=== PATIENT | female | born 1985 | race Caucasian/White ===

== ENCOUNTER 2016-09-02 05:24 | Inpatient (IN) | payer OTHER ==
[2016-09-02] VITALS (7 sets, daily range): BP systolic 101–122; BP diastolic 56–67
[~2016-09-02] VITALS: Ht 165.1 cm; Wt 97.5 kg
[~2016-09-02 05:24] MED LIST: ACET50TA PO; ANUS2.5C2 TOP; DOCU10ELUD PO; IBUP600T26 PO; MOM30SS; PRENTAB45 PO; STUATAB PO
[2016-09-02 06:04] LABS: MEAN CORPUSCULAR HEMOGLOBIN 32.6 pg (27.0-33.0); MEAN CORPUSCULAR HGB CONC 34.9 g/dl (32.0-36.5); MEAN CORPUSCULAR VOLUME 93.4 fl (80.0-96.0); RED CELL DISTRIBUTION WIDTH 13.1 % (11.5-14.5); WHITE BLOOD COUNT 7.8 K/mm3 (4.0-10.0)
[2016-09-02] MEDS ORDERED: BICITRA 30ML SOLN UDC As Ordered ONE (06:12)
[2016-09-02] MEDS ORDERED: LR 1,000 ML IV SCH (06:15)
[2016-09-02] MEDS ORDERED: BICITRA 30ML SOLN UDC PO SCH (07:01)
[2016-09-02] MEDS ORDERED: BICITRA 30ML SOLN UDC PO ONE (10:00)
[2016-09-02] MEDS ORDERED: METOCLOPRAMIDE INJ 10MG/2ML VIAL (J2765) IV PRN (10:44)
[2016-09-02] MEDS ORDERED: ONDANSETRON 4MG/2ML VIAL (J2405) IV PRN ×3 (10:44→13:00)
[2016-09-02] MEDS ORDERED: NALBUPHINE HCL 10 MG/ML AMP (J2300) IV PRN (10:44)
[2016-09-02] MEDS ORDERED: NALOXONE INJ 0.4 MG/1 ML VIAL (J2310) IV PRN ×2 (10:44)
[2016-09-02] MEDS ORDERED: MORPHINE PRES-FREE INJ 10 MG/10 ML VIAL (J2274) As Ordered ONE (10:49)
[2016-09-02] MEDS ORDERED: PHENYLephrine HCL 500 MCG/5 ML (100MCG/ML) SYRINGE (J2370) As Ordered ONE ×2 (10:49→10:57)
[2016-09-02] MEDS ORDERED: OXYTOCIN INJ 10 UNITS/ML VIAL (J2590) As Ordered ONE (10:59)
[2016-09-02] MEDS ORDERED: ONDANSETRON 4MG/2ML VIAL (J2405) As Ordered ONE (10:59)
[2016-09-02] MEDS ORDERED: KETOROLAC 60 MG/2 ML VIAL (J1885) As Ordered ONE (10:59)
[2016-09-02] MEDS ORDERED: MEPERIDINE 50 MG/ML 1ML VIAL (J2175) As Ordered ONE (11:21)
[2016-09-02] MEDS ORDERED: fentaNYL 100 MCG/2 ML INJECTION (J3010) IV PRN (12:30)
[2016-09-02] MEDS ORDERED: MEASLES,MUMPS,RUBELLA VACCINE INJ (MMR-II) (90707) SC SCH (13:00)
[2016-09-02] MEDS ORDERED: RHOGAM 300 MCG (1500 IU) INJ (J2790) IM SCH (13:00)
[2016-09-02] MEDS ORDERED: PROMETHAZINE 25 MG TAB PO PRN (13:00)
[2016-09-02] MEDS ORDERED: PERCOCET 5MG/325MG TAB PO PRN (13:00)
[2016-09-02] MEDS: PERCOCET 5MG/325MG TAB PO PRN ×2 (15:42→20:18)
[2016-09-02] MEDS: LR 1,000 ML IV SCH ×2 (16:00→20:52)
[2016-09-02] MEDS: KETOROLAC 30 MG/ML VIAL (J1885) IV SCH ×2 (17:04→23:00)
[2016-09-02] MEDS: DOCUSATE SODIUM 100 MG CAP PO SCH (20:18)
[2016-09-03] MEDS: PERCOCET 5MG/325MG TAB PO PRN ×5 (01:59→23:36)
[2016-09-03 02:00] VITALS: BP 110/64
[2016-09-03] MEDS: LR 1,000 ML IV SCH ×2 (04:52→20:52)
[2016-09-03] MEDS: KETOROLAC 30 MG/ML VIAL (J1885) IV SCH ×2 (05:18→11:13)
[2016-09-03 06:14] VITALS: BP 115/59
[2016-09-03 07:11] LABS: MEAN CORPUSCULAR HEMOGLOBIN 32.1 pg (27.0-33.0); MEAN CORPUSCULAR HGB CONC 34.1 g/dl (32.0-36.5); MEAN CORPUSCULAR VOLUME 94.2 fl (80.0-96.0); RED CELL DISTRIBUTION WIDTH 13.2 % (11.5-14.5); WHITE BLOOD COUNT 9.2 K/mm3 (4.0-10.0)
[2016-09-03] MEDS: DOCUSATE SODIUM 100 MG CAP PO SCH ×2 (09:27→20:04)
[2016-09-03] MEDS: PRENATAL VITAMIN TAB PO SCH (09:27)
[2016-09-03 10:00] VITALS: BP 125/60
[2016-09-03 14:10] VITALS: BP 115/65
[2016-09-03 18:41] VITALS: BP 129/76
[2016-09-03] MEDS: IBUPROFEN 800 MG TAB PO SCH (18:54)
[2016-09-03 22:05] VITALS: BP 133/59
[2016-09-04] MEDS: IBUPROFEN 800 MG TAB PO SCH ×3 (02:46→18:54)
[2016-09-04] MEDS: LR 1,000 ML IV SCH (04:52)
[2016-09-04 05:57] VITALS: BP 119/79
[2016-09-04] MEDS: PERCOCET 5MG/325MG TAB PO PRN ×4 (06:15→20:56)
[2016-09-04] MEDS ORDERED: OXYC1TAB23 PO (08:26)
[2016-09-04] MEDS ORDERED: IBUP600T26 PO (08:27)
[2016-09-04] MEDS ORDERED: COLA100C PO (09:27)
[2016-09-04] MEDS ORDERED: ZOFR4TAB3 PO (09:27)
[2016-09-04] MEDS: PRENATAL VITAMIN TAB PO SCH (09:54)
[2016-09-04] MEDS: DOCUSATE SODIUM 100 MG CAP PO SCH ×2 (09:54→20:56)
[2016-09-04 18:19] VITALS: BP 131/80
[2016-09-05] MEDS: PERCOCET 5MG/325MG TAB PO PRN ×3 (01:36→09:52)
[2016-09-05] MEDS: IBUPROFEN 800 MG TAB PO SCH (03:00)
[2016-09-05 05:51] VITALS: BP 127/65
[2016-09-05] MEDS ORDERED: KEFL500C7 PO ×2 (08:08→10:04)
[2016-09-05] MEDS: DOCUSATE SODIUM 100 MG CAP PO SCH (09:50)
[2016-09-05] MEDS: PRENATAL VITAMIN TAB PO SCH (09:50)
[2016-09-05] MEDS ORDERED: COLA100C PO (09:59)
[2016-09-05] MEDS ORDERED: IBUP-1114 PO (10:00)
[2016-09-05] MEDS ORDERED: PRENTAB9 PO (10:01)
[2016-09-05] MEDS ORDERED: ZOFR20TA PO (10:01)
[2016-09-05] MEDS ORDERED: OXYC1TAB23 PO ×2 (10:02→10:03)
--- NOTE | 2016-09-05 10:16 | DSES ---
DATE OF ADMISSION: 09/02/2016 DATE OF DISCHARGE: 09/05/2016 REASON FOR ADMISSION: Scheduled primary low transverse section at 39 weeks gestation. ADMITTING DIAGNOSES: 1. Term gestation at 39 weeks. 2. History of shoulder dystocia with sequelae (patient declined another trial of labor). DISCHARGE DIAGNOSIS: Status post primary low transverse section. DISCHARGE SUMMARY: The patient is a 31-year-old, (G) 5, now para (P) 3-0-2-3. She was admitted at 39 weeks and 1 day of gestation for a scheduled primary low transverse section. Her past obstetrical (OB) history is notable for shoulder dystocia with sequelae/clavicular fracture and prolonged recovery with her last . She declined trial of labor during this given risk of recurrence of shoulder dystoci. The patient underwent an uncomplicated primary low transverse section on 09/02/2016. Estimated blood loss was 600 mL. The delivery was productive of a baby girl weighing 7 pounds 8 ounces (3258 grams) with score of 8 and 9. Incidentally, three paratubal cysts were noted during the section and these were excised without any difficulty. Her postoperative hospital course was essentially uncomplicated. However, on postoperative day #3, it was noted that she had a small area of cellulitis developing underneath the umbilicus and above her incision. Her incision was clean, dry and intact but the skin above it was red, nonindurated and warm to touch. The patient did not complain of any exquisite pain over this area, and her pain was well controlled with Percocet and Motrin. She was ambulating without any difficulty. She was tolerating a regular diet. Her lochia was decreasing minimal. She was voiding spontaneously. The patient is breast-feeding and that is going well. She denied any headaches, blurred vision, shortness of breath, chest pain. Her vitals on the date of discharge, she was normotensive, normal heart rate, afebrile with adequate urine output. Heart regular rate and rhythm. No murmurs, gallops, rubs. Lungs clear to auscultation bilaterally. No wheeze, crackles, rales, or rhonchi. Abdomen soft, nontender, nondistended. Uterine fundus is 2 cm below the umbilicus. Incision was clean, dry and intact without any immediate surrounding erythema or induration. There was small amount of ecchymosis on the right side of the skin incision and directly above the central portion of the incision. There was also some mild skin erythema below the umbilicus and both the incision that was marked on postoperative day #2 and it was nonexpanding. There was no underlying induration. It was mildly warm to touch and it was not exquisitely tender. Extremities revealed no significant edema, nontender. Negative Homans bilaterally. Preoperative hemoglobin and hematocrit 11.9 and 34.3. Postoperative hemoglobin and hematocrit 10.4 and 30.4. ASSESSMEN AND PLAN: Postoperative day #3, meeting all discharge criteria. Pain is well controlled. Hemodynamically stable. Afebrile. Possible evolving cellulitis above the incision. She was given routine infectious, fever, pain and bleeding precautions. Incision wound care precautions were also reviewed. Postoperative medications include Percocet, Motrin, Colace and Zofran. We also added Keflex 500 mg twice a day for the next 7 days to treat the cellulitis.
== END 2016-09-05 11:55 | disposition home or self-care (01) | DRG 766 ==
LOC: M LDI 05:24 → M OBS 14:29
PROVIDERS: ADMIT Obstetrics & Gynecology; ATTEND Obstetrics & Gynecology
PROC: 0UB70ZZ Excision of Bilateral Fallopian Tubes, Open Approach (ICD-10-PCS; 2016-09-02)
PROC: 10D00Z1 Extraction of Products of Conception, Low, Open Approach (ICD-10-PCS; principal; 2016-09-02 07:30)
DX: O99.344 Other mental disorders complicating childbirth (principal); O22.03 Varicose veins of lower extremity in pregnancy, third trimester; F32.9 Major depressive disorder, single episode, unspecified; Z3A.39 39 weeks gestation of pregnancy; O26.893 Other specified pregnancy related conditions, third trimester; N83.8 Other noninflammatory disorders of ovary, fallopian tube and broad ligament; Z37.0 Single live birth

== ENCOUNTER → 2016-11-25 | Outpatient (CLI) | payer OTHER ==
[~2016-11-25] MED LIST changes: +COLA100C3 PO; +IBUP-1114 PO; +KEFL500C7 PO; +OXYC1TAB23 PO; +PRENTAB9 PO; +ZOFR20TA PO; +ZOFR4TAB3 PO
[2016-11-25 17:07] LABS: FREE T4 0.8 NG/DL (0.76-1.46)
== END ==
LOC: M WUC 14:47
PROVIDERS: ATTEND Obstetrics & Gynecology
DX: O90.6 Postpartum mood disturbance (principal)

== ENCOUNTER → 2017-02-09 | Outpatient (CLI) | payer OTHER ==
[~2017-02-09] MED LIST changes: -COLA100C3 PO; +COLA100C5 PO; +IBUP-1022 PO; +KEFL500C17 PO; -KEFL500C7 PO
--- NOTE | 2017-02-09 09:19 | REP ---
Clinical: Lower back pain. Technique: AP, lateral, bilateral oblique and coned-down views of the lumbosacral spine. Findings: Minimal endplate sclerosis at the L4-5 and L5-S1 levels with subtle disc space narrowing cannot be excluded. The remainder examination is normal for age. Alignment and lordosis maintained. No acute fracture / compression injury or subluxation. No obvious spondylolysis or spondylolisthesis. Impression: Mild degenerative changes at the L5-S1 and L4-L5 levels suggested. Otherwise normal examination.
--- NOTE | 2017-02-09 09:25 | REP ---
Clinical: Pain. Technique: AP, lateral, bilateral oblique views right hand . Findings: The osseous structures and joint spaces are intact and normal. There is no evidence for acute fracture or dislocation. Surrounding soft tissues are unremarkable. No subcutaneous emphysema or radiodense foreign body. Impression: Normal examination. No acute fracture or dislocation.
== END ==
LOC: M CLY 08:44
PROVIDERS: ATTEND Family Medicine
DX: M54.5 Low back pain (principal); M79.641 Pain in right hand

== ENCOUNTER → 2017-02-09 | Outpatient (REF) | payer OTHER ==
[2017-02-09 11:43] LABS: BASO # 0.1 K/mm3 (0.0-0.2); BASO % 1.4 % (0.0-1.0); EOS # 0.3 K/mm3 (0.0-0.50); EOS % 5.4 % (0.0-3.0); LARGE UNSTAINED CELL # 0.1 K/mm3 (0.0-0.4); LARGE UNSTAINED CELL % 1.4 % (0.0-4.0); LYMPH # 1.8 K/mm3 (1.5-4.5); LYMPH % 29.4 % (24.0-44.0); MEAN CORPUSCULAR HEMOGLOBIN 32.9 pg (27.0-33.0); MEAN CORPUSCULAR VOLUME 93.8 fl (80.0-96.0); MONO # 0.3 K/mm3 (0.0-0.8); MONO % 5.2 % (0.0-5.0); NEUTROPHILS # 3.6 K/mm3 (1.8-7.7); NEUTROPHILS % 57.2 % (36.0-66.0); PLATELET COUNT, AUTOMATED 272 k/mm3 (150-450); RED CELL DISTRIBUTION WIDTH 11.8 % (11.5-14.5); WHITE BLOOD COUNT 6.2 K/mm3 (4.0-10.0)
[2017-02-09 12:22] LABS: ALBUMIN/GLOBULIN RATIO 1.08 (1.00-1.93); ALKALINE PHOSPHATASE 115 U/L (45-117); ALT/SGPT 37 U/L (12-78); ANION GAP 6 MEQ/L (8-16); AST/SGOT 20 U/L (15-37); BILIRUBIN,TOTAL 1.3 MG/DL (0.2-1.0); BLOOD UREA NITROGEN 16 MG/DL (7-18); CALCIUM LEVEL 8.8 MG/DL (8.5-10.1); CARBON DIOXIDE LEVEL 28 MEQ/L (21-32); CHLORIDE LEVEL 106 MEQ/L (98-107); CREATININE FOR GFR 0.79 MG/DL (0.55-1.02); GLOMERULAR FILTRATION RATE > 60.0 (>60); GLUCOSE, FASTING 89 MG/DL (70-105); POTASSIUM SERUM 4.5 MEQ/L (3.5-5.1); SODIUM LEVEL 140 MEQ/L (136-145); THYROXINE (T4) 9.3 UG/DL (4.5-12.0); TOTAL PROTEIN 7.7 GM/DL (6.4-8.2)
[2017-02-09 12:34] LABS: ERYTHROCYTE SEDIMENTATION RATE 5 mm/hr (0-20)
[2017-02-11 00:07] LABS: Lyme Disease IgG/IgM Antibodie <0.91 ISR (0.00-0.90); Lyme Disease IgM Ab Quantitati <0.80 index (0.00-0.79)
== END ==
LOC: M SFHCCLAY 08:25
PROVIDERS: ATTEND Family Medicine
DX: M25.50 Pain in unspecified joint (principal); M54.5 Low back pain; R42 Dizziness and giddiness

== ENCOUNTER → 2017-06-27 | Outpatient (REF) | payer OTHER | LOC: M LAB REF 16:55 | PROVIDERS: ATTEND Physician Assistant | DX: R30.0 Dysuria (principal) ==

== ENCOUNTER → 2017-08-03 | Outpatient (REF) | payer OTHER | LOC: M LAB REF 12:10 | PROVIDERS: ATTEND Physician Assistant | DX: N39.0 Urinary tract infection, site not specified (principal) ==

== ENCOUNTER → 2019-01-29 | Outpatient (REF) | payer OTHER ==
[~2019-01-29] MED LIST changes: -ACET50TA PO; -DOCU10ELUD PO; +DOCU5LIQ PO; +MAPA500T17 PO; -ZOFR20TA PO; +ZOFR4TAB14 PO; +ZOFR4TAB16 PO; -ZOFR4TAB3 PO
[2019-01-29 17:10] LABS: ALBUMIN 3.6 GM/DL (3.2-5.2); ALT/SGPT 27 U/L (12-78); BILIRUBIN,TOTAL 0.8 MG/DL (0.2-1.0); BLOOD UREA NITROGEN 11 MG/DL (7-18); CALCIUM LEVEL 8.7 MG/DL (8.5-10.1); CARBON DIOXIDE LEVEL 26 MEQ/L (21-32); CHLORIDE LEVEL 109 MEQ/L (98-107); CREATININE FOR GFR 0.78 MG/DL (0.55-1.30); GLOMERULAR FILTRATION RATE > 60.0 (>60); GLUCOSE, FASTING 88 MG/DL (70-100); POTASSIUM SERUM 4.2 MEQ/L (3.5-5.1); SODIUM LEVEL 141 MEQ/L (136-145); THYROXINE (T4) 8.3 UG/DL (4.5-12.0); TOTAL PROTEIN 7.2 GM/DL (6.4-8.2)
[2019-01-29 17:21] LABS: BASO # 0.1 10^3/uL (0.0-0.2); BASO % 1.2 % (0.0-1.0); EOS # 0.3 10^3/uL (0.0-0.50); EOS % 5.2 % (0.0-3.0); HEMATOCRIT 42.6 % (36.0-47.0); HEMOGLOBIN 14.2 g/dl (12.0-15.5); LYMPH # 1.9 10^3/uL (1.5-4.5); LYMPH % 36.6 % (24.0-44.0); MEAN CORPUSCULAR HEMOGLOBIN 32.2 pg (27.0-33.0); MEAN CORPUSCULAR HGB CONC 33.3 g/dl (32.0-36.5); MEAN CORPUSCULAR VOLUME 96.6 fl (80.0-96.0); MONO # 0.4 10^3/uL (0.0-0.8); MONO % 7.9 % (0.0-5.0); NEUTROPHILS # 2.5 10^3/uL (1.8-7.7); NEUTROPHILS % 48.9 % (36.0-66.0); PLATELET COUNT, AUTOMATED 243 10^3/uL (150-450); RED BLOOD COUNT 4.41 10^6/uL (4.00-5.40); WHITE BLOOD COUNT 5.2 10^3/uL (4.0-10.0)
== END ==
LOC: M SFHCCLAY 10:56
PROVIDERS: ATTEND Family Medicine
DX: F98.8 Other specified behavioral and emotional disorders with onset usually occurring in childhood and adolescence (principal); F90.0 Attention-deficit hyperactivity disorder, predominantly inattentive type; R53.83 Other fatigue

== ENCOUNTER → 2019-04-17 | Outpatient (REF) | payer OTHER ==
[~2019-04-17] MED LIST changes: +ADDE10CA3 PO; +D MANNOSE PO; +PROBCAP14 PO
[2019-04-17 22:33] LABS: CHLAMYDIA DNA AMPLIFICATION NEGATIVE (NEGATIVE); GC DNA AMPLIFICATION NEGATIVE (NEGATIVE)
[2019-04-20 14:07] LABS: HPV HYBRID CAPTURE II Negative (Negative)
== END ==
LOC: M LAB REF 17:34
PROVIDERS: ATTEND Obstetrics & Gynecology
DX: Z12.4 Encounter for screening for malignant neoplasm of cervix (principal)

== ENCOUNTER → 2019-04-17 | Outpatient (REF) | payer OTHER | LOC: M LABDRAWC 11:41 | PROVIDERS: ATTEND Obstetrics & Gynecology | DX: R30.0 Dysuria (principal) ==

== ENCOUNTER → 2019-05-09 | Outpatient (REF) | payer OTHER ==
[~2019-05-09] MED LIST changes: -ADDE10CA3 PO; -D MANNOSE PO; -PROBCAP14 PO
[2019-05-09 13:58] LABS: APPEARANCE, URINE CLEAR (CLEAR); BACTERIA, URINE AUTO 1+ (NEGATIVE); BILIRUBIN, URINE AUTO NEGATIVE (NEGATIVE); BLOOD, URINE BLOOD NEGATIVE (NEGATIVE); COLOR, URINE STRAW (YELLOW); GLUCOSE, URINE (UA) AUTO NEGATIVE (NEGATIVE); KETONE, URINE AUTO NEGATIVE (NEGATIVE); LEUKOCYTE ESTERASE, URINE AUTO NEGATIVE (NEGATIVE); MUCUS, URINE SMALL (NEGATIVE); NITRITE, URINE AUTO NEGATIVE (NEGATIVE); PROTEIN, URINE AUTO NEGATIVE (NEGATIVE); RBC, URINE AUTO 0 /HPF (0-3); SPECIFIC GRAVITY URINE AUTO 1.004 (1.002-1.035); SQUAMOUS EPITHELIAL CELL UR AU 0 /HPF (0-6); UROBILINOGEN, URINE AUTO 0.2 mg/dL (0.0-2.0); WBC, URINE AUTO 0 /HPF (0-3)
[2019-05-09 16:45] LABS: CHLAMYDIA DNA AMPLIFICATION NEGATIVE (NEGATIVE); GC DNA AMPLIFICATION NEGATIVE (NEGATIVE)
== END ==
LOC: M SMT 12:49
PROVIDERS: ATTEND Nurse Practitioner Women's Health
DX: R30.0 Dysuria (principal)

== ENCOUNTER 2019-07-16 06:13 | Day surgery (SDC) | payer OTHER ==
[~2019-07-16] VITALS: Ht 165.1 cm; Wt 75.3 kg
[~2019-07-16 06:13] MED LIST changes: +ADDE10CA3 PO; +D MANNOSE PO; +LR 1,000 ML IV ONE; +PROBCAP14 PO
[2019-07-16] MEDS ORDERED: SILVER NITRATE APPLICATOR As Ordered ONE (06:54)
[2019-07-16] MEDS ORDERED: BUPIVACAINE HCL 0.25% 30 ML VIAL As Ordered ONE (06:55)
[2019-07-16] MEDS ORDERED: ROCURONIUM BROMIDE 50 MG/5 ML VIAL As Ordered ONE ×2 (06:58→07:19)
[2019-07-16] MEDS ORDERED: PROPOFOL 200 MG/20 ML VIAL As Ordered ONE ×2 (06:58→07:19)
[2019-07-16] MEDS ORDERED: LIDOCAINE 2% INJ 100 MG/5 ML SDV (FOR ANES.) As Ordered ONE ×2 (06:58→07:19)
[2019-07-16] MEDS ORDERED: dexameTHASONE 4 MG/ML 1ML VIAL (J1100) As Ordered ONE ×2 (06:59→07:19)
[2019-07-16] MEDS ORDERED: MIDAZOLAM INJ 2 MG/2 ML VIAL (J2250) As Ordered ONE (06:59)
[2019-07-16] MEDS ORDERED: fentaNYL 250 MCG/5 ML INJECTION (J3010) As Ordered ONE (06:59)
[2019-07-16] MEDS ORDERED: ONDANSETRON 4MG/2ML VIAL (J2405) As Ordered ONE ×2 (06:59→07:19)
[2019-07-16 07:02] LABS: HEMATOCRIT 37.6 % (36.0-47.0); MEAN CORPUSCULAR HEMOGLOBIN 32.6 pg (27.0-33.0); MEAN CORPUSCULAR HGB CONC 34.6 g/dl (32.0-36.5); MEAN CORPUSCULAR VOLUME 94.2 fl (80.0-96.0); PLATELET COUNT, AUTOMATED 241 10^3/uL (150-450); RED BLOOD COUNT 3.99 10^6/uL (4.00-5.40); WHITE BLOOD COUNT 5.6 10^3/uL (4.0-10.0)
[2019-07-16 07:27] LABS: HCG, SERUM QUALITATIVE NEGATIVE (NEGATIVE)
[2019-07-16] MEDS ORDERED: KETOROLAC 60 MG/2 ML VIAL (J1885) As Ordered ONE (07:51)
[2019-07-16] MEDS ORDERED: SUGAMMADEX SODIUM 500 MG/5 ML VIAL (BRIDION) As Ordered ONE (07:52)
[2019-07-16] MEDS ORDERED: OXYC1TAB23 PO (08:32)
[2019-07-16] MEDS ORDERED: fentaNYL 100 MCG/2 ML INJECTION (J3010) As Ordered ONE (08:36)
[2019-07-16] MEDS: fentaNYL 100 MCG/2 ML INJECTION (J3010) IV PRN ×4 (08:36→08:57)
[2019-07-16] MEDS ORDERED: LR 1,000 ML IV SCH ×2 (09:00)
[2019-07-16] MEDS ORDERED: oxyCODONE 5MG TAB PO PRN (09:00)
[2019-07-16] MEDS ORDERED: ONDANSETRON 4MG/2ML VIAL (J2405) IV PRN (09:00)
--- NOTE | 2019-07-16 09:06 | RO ---
DATE OF PROCEDURE: 07/16/2019 PREOPERATIVE DIAGNOSIS: Satisfied parity. POSTOPERATIVE DIAGNOSIS: Satisfied parity. PROCEDURE PERFORMED: Laparoscopic opportunistic bilateral salpingectomy. SURGEON: Dr. Nick Rodriguez DO FACOG DIRECTOR OF PLAYER PERSONNEL: None. ANESTHESIA TYPE: General endotracheal. SPECIMENS TO PATHOLOGY: Bilateral fallopian tubes. ESTIMATED BLOOD LOSS: 5 mL FLUIDS REPLACED: 600 mL lactated Ringer's. DRAINS: Saha catheter 50 mL urine output. COMPLICATIONS: None. PREOPERATIVE ANTIBIOTICS: None indicated. INTRAOPERATIVE FINDINGS: Mild bladder adhesions to the lower uterine segment. Otherwise mild to no intraperitoneal adhesive disease, normal bilateral adnexa and uterus. Normal appendix, gallbladder and liver edge. INDICATION: The patient is a 34-year-old with 100% satisfied parity. She is requesting permanent sterilization via laparoscopic bilateral salpingectomy after she was counseled on all control method options. PROCEDURE: The patient was counseled on the risks, benefits, indications, and alternatives of the procedure. Informed consent was obtained. She was taken to the operating room with an IV running and placed on the operating table in the dorsal supine position. General anesthesia was administered and her airway was secured without any difficulty. She was placed in low lithotomy position. She was prepared and draped in the normal, sterile fashion. A time-out was performed per protocol. A Saha catheter was placed under sterile conditions. A sterile speculum placed with good visualization of the cervix. The anterior lip of the cervix was grasped with a single-tooth tenaculum and downward traction was applied. The cervix was sequentially dilated with Brice dilators up to #16. The Zumi uterine manipulator was then placed without any difficulty. The single-tooth tenaculum was removed. Tenaculum sites were noted be hemostatic. The sterile speculum was removed. A glove switch was performed. Attention was turned to the abdomen. 5 mL of 0.25% Marcaine were injected into the umbilicus. A 5 mm umbilical incision was made with an 11 blade. Through this incision, a Veress needle was placed into the intraperitoneal cavity. Intraperitoneal placement was confirmed with ease of flow of normal saline, negative return on aspiration and a positive drop test. The opening pressure was 2 mmHg mercury and the abdomen was insufflated 2 liters of gas. The Veress needle was removed. The size 5 mm XL laparoscopic trocar was placed into the intraperitoneal cavity under direct visualization without any difficulty. No incidental bleeding or injury was noted. The patient was placed in steep Trendelenburg. Two additional laparoscopic sites were placed in the lower left abdomen through 5 mm incisions the [place] laparoscopic trocars were placed under direct visualization without any difficulty, incidental injury or bleeding. Once the cannulas were in place, attention was turned to the left fallopian tube. The left fallopian tube was followed out to the fimbriated end, then grasped and elevated. The underlying mesosalpinx was sequentially clamped, coagulated and transected until level of the cornu was reached. At the level of cornu the fallopian tube was clamped across, coagulated and transected thus amputating the left fallopian tube. The left fallopian tube was brought through the cannula without any difficulty and sent to pathology for permanent section. Attention was turned to the right fallopian tube. The right fallopian tube was followed out to the fimbriated end and grasped and elevated. The underlying mesosalpinx / broad ligament was sequentially clamped, coagulated and transected until level of cornu was reached. At the level of cornu, the fallopian tube was clamped, coagulated and transected thus amputating the right fallopian tube. The right fallopian tube was brought through the cannula without any difficulty and sent to pathology for permanent section. Inspection of both surgical sites revealed complete hemostasis. The patient was taken out of Trendelenburg. The gas was released from the abdomen. The cannulas were removed. The skin incisions were closed with 4-0 Monocryl in subcuticular fashion and reinforced with Dermabond. Attention was turned to the pelvis. The Saha catheter was removed. The Zumi uterine manipulator was removed. The cervix was inspected and noted to be hemostatic. All instruments were removed from the vagina. The sponge, needle and instrument counts were correct per protocol. She was transferred to PACU in good stable condition inch tolerated the entire procedure very well. FLAQUITO
[2019-07-16 10:40] VITALS: BP 108/67
== END 2019-07-16 10:45 | disposition home or self-care (01) ==
LOC: M SDC 06:13
PROVIDERS: ATTEND Obstetrics & Gynecology
DX: Z30.2 Encounter for sterilization (principal); J45.909 Unspecified asthma, uncomplicated; F41.9 Anxiety disorder, unspecified; F90.9 Attention-deficit hyperactivity disorder, unspecified type; Z79.899 Other long term (current) drug therapy; Z91.040 Latex allergy status; Z88.2 Allergy status to sulfonamides; Z91.018 Allergy to other foods
CPT/HCPCS: 36415; 58661; 84703; 85027; 86850; 86900; 86901; 88302; J1100; J1885; J2250; J2405; J3010

== ENCOUNTER → 2019-07-25 | Outpatient (REF) | payer OTHER ==
[~2019-07-25] MED LIST changes: -LR 1,000 ML IV ONE
== END ==
LOC: M LAB REF 19:04
PROVIDERS: ATTEND Dermatology
DX: L11.0 Acquired keratosis follicularis (principal)

== ENCOUNTER → 2019-09-05 | Outpatient (REF) | payer OTHER | LOC: M LAB REF 15:30 | PROVIDERS: ATTEND Surgery | DX: D23.62 Other benign neoplasm of skin of left upper limb, including shoulder (principal) ==

== ENCOUNTER → 2019-10-03 | Outpatient (REF) | payer OTHER ==
[2019-10-03 12:29] LABS: BASO % 0.8 % (0.0-1.0); EOS # 0.1 10^3/uL (0.0-0.5); EOS % 2.5 % (0.0-3.0); HEMATOCRIT 40.9 % (36.0-47.0); HEMOGLOBIN 13.8 g/dl (12.0-15.5); LYMPH % 41.7 % (24.0-44.0); MEAN CORPUSCULAR HEMOGLOBIN 32.9 pg (27.0-33.0); MEAN CORPUSCULAR HGB CONC 33.7 g/dl (32.0-36.5); MEAN CORPUSCULAR VOLUME 97.4 fl (80.0-96.0); MONO # 0.4 10^3/uL (0.0-0.8); MONO % 8.4 % (0.0-5.0); NEUTROPHILS # 2.2 10^3/uL (1.5-8.5); NEUTROPHILS % 46.4 % (36.0-66.0); PLATELET COUNT, AUTOMATED 259 10^3/uL (150-450); WHITE BLOOD COUNT 4.8 10^3/uL (4.0-10.0)
[2019-10-03 12:52] LABS: ALT/SGPT 29 U/L (12-78); BILIRUBIN,TOTAL 0.5 MG/DL (0.2-1.0); BLOOD UREA NITROGEN 12 MG/DL (7-18); C REACTIVE PROTEIN QUANTITATIV < 0.30 MG/DL (0.00-0.30); CALCIUM LEVEL 8.4 MG/DL (8.5-10.1); CARBON DIOXIDE LEVEL 29 MEQ/L (21-32); CHLORIDE LEVEL 108 MEQ/L (98-107); CREATININE FOR GFR 0.71 MG/DL (0.55-1.30); GLOMERULAR FILTRATION RATE > 60.0 (>60); GLUCOSE, FASTING 84 MG/DL (70-100); POTASSIUM SERUM 4.6 MEQ/L (3.5-5.1); RHEUMATOID FACTOR QUANT < 10.0 IU/ML (<15.0); SODIUM LEVEL 140 MEQ/L (136-145); TOTAL PROTEIN 7.3 GM/DL (6.4-8.2); URIC ACID 3.2 MG/DL (2.6-6.0)
[2019-10-03 13:02] LABS: ERYTHROCYTE SEDIMENTATION RATE 5 mm/hr (0-20)
[2019-10-05 00:06] LABS: ANA (HEP2) Negative (.); CYCLIC CITRULLINATED PEPTIDE 8 units (0-19); Lyme Disease IgG/IgM Antibodie <0.91 ISR (0.00-0.90); Lyme Disease IgM Ab Quantitati <0.80 index (0.00-0.79)
== END ==
LOC: M SFHCCLAY 09:39
PROVIDERS: ATTEND Family Medicine
DX: M25.50 Pain in unspecified joint (principal); L40.9 Psoriasis, unspecified

== ENCOUNTER → 2020-06-09 | Outpatient (REF) | payer OTHER ==
[2020-06-09 17:06] LABS: THYROID STIMULATING HORMONE 0.683 uIU/ML (0.358-3.740)
== END ==
LOC: M SFHCCLAY 11:16
PROVIDERS: ATTEND Family Medicine
DX: R53.82 Chronic fatigue, unspecified (principal)

== ENCOUNTER → 2020-12-07 | Outpatient (CLI) | payer BC ==
--- NOTE | 2020-12-07 10:49 | REPMRS ---
Patient History The patient states she had a clinical breast exam in 11/2020. No known family history of cancer. No Hormone Replacement Therapy Patient states no breast complaints today. Patient has signed MRS History Sheet. Digital Woman Screen Mammo: December 07, 2020 - Exam #: [id number] Bilateral CC and MLO view(s) were taken. Technologist: Amberly Campos, Technologist FINDINGS: There are scattered fibroglandular densities. Screening. Digital screening (2D) mammography was performed bilaterally. Additionally, breast tomosynthesis (3D) mammography was perfomed bilaterally in the CC and MLO projections. Today's examination is the initial screening examination. By history, the patient has no complaints of a palpable breast abnormality or other significant breast complaints. The breasts are symmetric in size and shape. There are no masses. There is no internal architectural distortion. Benign appearing calcifications are seen. There are no suspicious microcalcific clusters. Skin thickening or nipple retraction is not present. IMPRESSION: BI-RADS Category 2- Benign Findings(s). There is no evidence of malignant alteration of the breasts. Followup examination recommended in one year. The Volpara volumetric breast density category is B, there are scattered areas of fibroglandular density. This mammogram was read with the assistance of [employer],an FDA approved computer aided detection system for mammography. The lifetime Tyrer-Cuzick score is 14.8% Negative x-ray reports should not delay surgical consultation if a dominant or clinically suspicious mass is present. Not all breast cancers can be identified by mammography. Therefore, we recommend that you continue to perform regular breast self-examination and physical examination and then promptly contact your physician of any concerns or changes. Adenosis and dense breasts may obscure an underlying neoplasm. Assessment: BI-RADS/ACR category 2 mammogram. Benign Findings. Recommendation Routine screening mammogram of both breasts in 1 year. Electronically Signed By: Oswaldo Marie DO 12/07/20 104
== END ==
LOC: M WHC 09:50
PROVIDERS: ATTEND Obstetrics & Gynecology
DX: Z12.31 Encounter for screening mammogram for malignant neoplasm of breast (principal)

== ENCOUNTER → 2021-04-22 | Outpatient (REF) | payer BC ==
[2021-04-22 13:52] LABS: BACTERIA, URINE AUTO NEGATIVE (NEGATIVE); RBC, URINE AUTO 0 /HPF (0-3); SQUAMOUS EPITHELIAL CELL UR AU 1 /HPF (0-6); WBC, URINE AUTO 0 /HPF (0-3)
== END ==
LOC: M SMT 12:47
PROVIDERS: ATTEND Specialist
DX: N94.819 Vulvodynia, unspecified (principal)

== ENCOUNTER → 2022-03-03 | Outpatient (REF) | payer BC ==
[2022-03-03 16:20] LABS: BASO # 0.1 10^3/uL (0.0-0.2); BASO % 1.2 % (0.0-1.0); EOS # 0.3 10^3/uL (0.0-0.5); EOS % 5.1 % (0.0-3.0); HEMATOCRIT 40.6 % (36.0-47.0); HEMOGLOBIN 13.6 g/dl (12.0-15.5); LYMPH # 1.9 10^3/uL (1.5-5.0); LYMPH % 36.3 % (24.0-44.0); MEAN CORPUSCULAR HEMOGLOBIN 32.4 pg (27.0-33.0); MEAN CORPUSCULAR HGB CONC 33.5 g/dl (32.0-36.5); MEAN CORPUSCULAR VOLUME 96.7 fl (80.0-96.0); MONO # 0.4 10^3/uL (0.0-0.8); MONO % 7.8 % (2.0-8.0); NEUTROPHILS # 2.5 10^3/uL (1.5-8.5); NEUTROPHILS % 49.4 % (36.0-66.0); PLATELET COUNT, AUTOMATED 282 10^3/uL (150-450); WHITE BLOOD COUNT 5.1 10^3/uL (4.0-10.0)
[2022-03-03 16:59] LABS: ALBUMIN 3.9 GM/DL (3.2-5.2); ALT/SGPT 19 U/L (12-78); BILIRUBIN,TOTAL 0.7 MG/DL (0.2-1.0); BLOOD UREA NITROGEN 11 MG/DL (7-18); CALCIUM LEVEL 9.1 MG/DL (8.5-10.1); CARBON DIOXIDE LEVEL 26 MEQ/L (21-32); CHLORIDE LEVEL 108 MEQ/L (98-107); CREATININE FOR GFR 0.68 MG/DL (0.55-1.30); FREE T4 0.87 NG/DL (0.76-1.46); GLOMERULAR FILTRATION RATE > 60.0 (>60); GLUCOSE, FASTING 93 MG/DL (70-100); POTASSIUM SERUM 4.5 MEQ/L (3.5-5.1); SODIUM LEVEL 140 MEQ/L (136-145); THYROID STIMULATING HORMONE 0.447 uIU/ML (0.358-3.740); TOTAL PROTEIN 7.1 GM/DL (6.4-8.2)
[2022-03-03 17:24] LABS: TOTAL T3 117.8 NG/DL (60.0-181.0)
[2022-03-06 16:07] LABS: FACTOR VIII AG (VON WILLEBRAN) 38 % (50-200); H PYLORI SERUM QUANT IGA <9.0 units (0.0-8.9); H PYLORI SERUM QUANT IGM <9.0 units (0.0-8.9); H PYLORI SERUM QUANT IgG ABY 0.37 (0.00-0.79)
== END ==
LOC: M SFHCCLAY 11:36
PROVIDERS: ATTEND Family Medicine
DX: R23.3 Spontaneous ecchymoses (principal); R10.30 Lower abdominal pain, unspecified; R53.82 Chronic fatigue, unspecified

== ENCOUNTER → 2022-04-19 | Outpatient (CLI) | payer BC ==
[2022-04-19 16:09] LABS: HEMATOCRIT 38.5 % (36.0-47.0)
[2022-04-19 16:10] LABS: HEMATOCRIT 38.9 % (36.0-47.0); HEMOGLOBIN 13.3 g/dl (12.0-15.5); MEAN CORPUSCULAR HEMOGLOBIN 32.7 pg (27.0-33.0); MEAN CORPUSCULAR HGB CONC 34.2 g/dl (32.0-36.5); MEAN CORPUSCULAR VOLUME 95.6 fl (80.0-96.0); PLATELET COUNT, AUTOMATED 219 10^3/uL (150-450); RED BLOOD COUNT 4.07 10^6/uL (4.00-5.40); WHITE BLOOD COUNT 6.2 10^3/uL (4.0-10.0)
[2022-04-19 16:21] LABS: INR 1.02; PROTHROMBIN TIME 13.8 SECONDS (12.7-14.5)
[2022-04-19 16:22] LABS: PARTIAL THROMBOPLASTIN TIME 31.3 SECONDS (25.9-37.0)
[2022-04-19 16:49] LABS: PERCENT SATURATION 26.7 % (13.2-45.0)
[2022-04-22 04:07] LABS: F8 ACTIVITY FOR F8 PANEL 95 % (56-140); F8 ACTIVITY vWB FOR F8 PANEL 104 % (50-200); F8 ANTIGEN FOR F8 PANEL 144 % (50-200)
== END ==
LOC: M LAB 15:05
PROVIDERS: ATTEND Internal Medicine Hematology
DX: D68.0 Von Willebrand disease (principal)

== ENCOUNTER → 2022-07-22 | Outpatient (REF) | payer BC ==
[2022-07-22 18:45] LABS: HEMOGLOBIN A1c 4.8 % (4.0-6.0)
[2022-07-22 18:58] LABS: TOTAL 25(OH) VITAMIN D 37.2 NG/ML (20.0-100.0)
[2022-07-22 18:59] LABS: RHEUMATOID FACTOR QUANT < 3.5 IU/ML (<14)
[2022-07-29 01:07] LABS: ANTI DS-DNA AB Negative (Negative); ANTINUCLEAR ANTIBODIES DIRECT Negative (Negative); CERULOPLASMIN 16.4 mg/dL (19.0-39.0); COPPER PLASMA 88 ug/dL (80-158); SJOGREN'S ANTI SS-A <0.2 AI (0.0-0.9); SJOGREN'S ANTI SS-B <0.2 AI (0.0-0.9); VITAMIN B1 LEVEL WHOLE BLOOD 141.3 nmol/L (66.5-200.0); VITAMIN B6,PYRIDOXAL PHOSPHATE 26.8 ug/L (3.4-65.2); VITAMIN E(ALPHA TOCOPHEROL) 11.3 mg/L (5.9-19.4); VITAMIN E(GAMMA TOCOPHEROL) 0.6 mg/L (0.7-4.9)
== END ==
LOC: M LABDRAWC 17:22
PROVIDERS: ATTEND Psychiatry & Neurology Neurology
DX: R20.2 Paresthesia of skin (principal); R52 Pain, unspecified

== ENCOUNTER → 2022-08-22 | Outpatient (REF) | payer BC | LOC: M SFHCWAGY 17:05 | PROVIDERS: ATTEND Obstetrics & Gynecology | DX: Z12.4 Encounter for screening for malignant neoplasm of cervix (principal) | CPT/HCPCS: 87624; G0123 ==

== ENCOUNTER → 2022-08-25 | Outpatient (CLI) | payer BC ==
[~2022-08-25] MED LIST changes: +ISOVUE-370 76% 100ML VIAL As Ordered ONE
== END ==
LOC: M RAD 10:51
PROVIDERS: ATTEND Family Medicine
DX: R93.0 Abnormal findings on diagnostic imaging of skull and head, not elsewhere classified (principal); M89.8X8 Other specified disorders of bone, other site

== ENCOUNTER → 2022-10-17 | Outpatient (CLI) | payer BC ==
[~2022-10-17] MED LIST changes: -ISOVUE-370 76% 100ML VIAL As Ordered ONE
== END ==
LOC: M WHC 10:54
PROVIDERS: ATTEND Obstetrics & Gynecology
DX: N93.9 Abnormal uterine and vaginal bleeding, unspecified (principal)

== ENCOUNTER → 2023-03-15 | Outpatient (CLI) | payer BC | LOC: M WHC 10:03 | PROVIDERS: ATTEND Family Medicine | DX: Z12.31 Encounter for screening mammogram for malignant neoplasm of breast (principal) ==

== ENCOUNTER 2023-05-18 08:08 | Day surgery (SDC) | payer BC ==
[~2023-05-18] VITALS: Ht 165.1 cm; Wt 71.1 kg
[~2023-05-18 08:08] MED LIST changes: +AMPH1CAP16 PO; +GERI8.6T PO; +LEXA5TAB13 PO; +NS 1,000 ML IV ONE; +RIZA10TA2 PO; +VYVA30CA4 PO
[2023-05-18 10:15] VITALS: TEMP 98.9
[2023-05-18 10:35] VITALS: BP 91/51; O2SAT 99
== END 2023-05-18 10:48 | disposition home or self-care (01) ==
LOC: M OPP 08:08
PROVIDERS: ATTEND Internal Medicine Gastroenterology
DX: K63.5 Polyp of colon (principal); K63.3 Ulcer of intestine; K64.8 Other hemorrhoids; K58.1 Irritable bowel syndrome with constipation; Z87.891 Personal history of nicotine dependence; Z79.899 Other long term (current) drug therapy; Z88.1 Allergy status to other antibiotic agents; Z91.018 Allergy to other foods; Z91.040 Latex allergy status; Z91.048 Other nonmedicinal substance allergy status

== ENCOUNTER → 2023-09-20 | Outpatient (REF) | payer BC ==
[~2023-09-20] MED LIST changes: -NS 1,000 ML IV ONE
== END ==
LOC: M SFHCWAGY 18:09
PROVIDERS: ATTEND Obstetrics & Gynecology
DX: N93.9 Abnormal uterine and vaginal bleeding, unspecified (principal)

== ENCOUNTER → 2023-11-21 | Outpatient (REF) | payer BC ==
[~2023-11-21] MED LIST changes: -GERI8.6T PO; +SENN-193 PO
[2023-11-21 18:53] LABS: BASO # 0.1 10^3/uL (0.0-0.2); BASO % 1.1 % (0.0-1.0); EOS # 0.3 10^3/uL (0.0-0.5); EOS % 6.1 % (0.0-3.0); HEMATOCRIT 38.6 % (36.0-47.0); HEMOGLOBIN 13.2 g/dl (12.0-15.5); LYMPH # 1.5 10^3/uL (1.5-5.0); LYMPH % 34.9 % (24.0-44.0); MEAN CORPUSCULAR HEMOGLOBIN 33.7 pg (27.0-33.0); MEAN CORPUSCULAR HGB CONC 34.2 g/dl (32.0-36.5); MEAN CORPUSCULAR VOLUME 98.5 fl (80.0-96.0); MONO # 0.4 10^3/uL (0.0-0.8); MONO % 8.6 % (2.0-8.0); NEUTROPHILS # 2.2 10^3/uL (1.5-8.5); NEUTROPHILS % 49.1 % (36.0-66.0); PLATELET COUNT, AUTOMATED 253 10^3/uL (150-450); RED BLOOD COUNT 3.92 10^6/uL (4.00-5.40); WHITE BLOOD COUNT 4.4 10^3/uL (4.0-10.0)
[2023-11-21 19:13] LABS: ERYTHROCYTE SEDIMENTATION RATE 3 mm/hr (0-20)
[2023-11-21 19:28] LABS: ALBUMIN 3.7 G/DL (3.2-5.2); ALKALINE PHOSPHATASE 66 U/L (46-116); ALT/SGPT 16 U/L (7.0-40); AST/SGOT 15 U/L (<34); BILIRUBIN,TOTAL 0.9 MG/DL (0.3-1.2); BLOOD UREA NITROGEN 12 MG/DL (9-23); CALCIUM LEVEL 8.3 MG/DL (8.5-10.1); CARBON DIOXIDE LEVEL 25 MMOL/L (20-31); CHLORIDE LEVEL 107 MMOL/L (98-107); CREATININE FOR GFR 0.65 MG/DL (0.55-1.30); FREE T4 0.88 NG/DL (0.89-1.76); GLOMERULAR FILTRATION RATE > 60.0 (>58); GLUCOSE, FASTING 89 MG/DL (60-100); IRON (FE) 90 UG/DL (50-170); POTASSIUM SERUM 4.9 MMOL/L (3.5-5.1); SODIUM LEVEL 139 MMOL/L (136-145); TOTAL PROTEIN 6.3 G/DL (5.7-8.2)
== END ==
LOC: M SFHCCLAY 10:04
PROVIDERS: ATTEND Family Medicine
DX: M79.10 Myalgia, unspecified site (principal); M25.50 Pain in unspecified joint; R53.82 Chronic fatigue, unspecified

== ENCOUNTER → 2024-04-03 | Outpatient (CLI) | payer BC | LOC: M RAD 08:21 | PROVIDERS: ATTEND Family Medicine | DX: R10.30 Lower abdominal pain, unspecified (principal) ==

== ENCOUNTER 2024-05-29 06:13 | Day surgery (SDC) | payer BC ==
[~2024-05-29] VITALS: Ht 165.1 cm; Wt 76.1 kg
[2024-05-29] VITALS (8 sets, daily range): BP systolic 106–128; BP diastolic 63–78; TEMP 97.8–98.7; O2SAT 96–99
[~2024-05-29 06:13] MED LIST changes: +LR 1,000 ML IV SCH; +THERTAB52 PO
[2024-05-29] MEDS ORDERED: LR 1,000 ML IV SCH ×2 (06:20→09:20)
[2024-05-29] MEDS ORDERED: VENTAER INH (06:46)
[2024-05-29] MEDS ORDERED: ONDANSETRON 4MG 2ML VIAL As Ordered ONE (07:02)
[2024-05-29] MEDS ORDERED: ACETAMINOPHEN 1000MG 100ML IV BAG As Ordered ONE (07:02)
[2024-05-29] MEDS ORDERED: KETAMINE HCL 200MG/20ML VIAL As Ordered ONE (07:02)
[2024-05-29] MEDS ORDERED: MIDAZOLAM INJ 2MG/2ML VIAL As Ordered ONE (07:02)
[2024-05-29] MEDS ORDERED: ROCURONIUM BROMIDE 50MG/5ML VIAL As Ordered ONE (07:02)
[2024-05-29] MEDS ORDERED: SUGAMMADEX SODIUM 500 MG/5 ML VIAL (BRIDION) As Ordered ONE (07:02)
[2024-05-29] MEDS ORDERED: fentaNYL 100 MCG/2 ML INJECTION As Ordered ONE (07:02)
[2024-05-29] MEDS ORDERED: LIDOCAINE 2% 100MG/5ML SDV (FOR ANES.) As Ordered ONE (07:02)
[2024-05-29] MEDS ORDERED: propofoL 200 MG/20 ML VIAL As Ordered ONE (07:02)
[2024-05-29] MEDS ORDERED: KETOROLAC 60MG 2ML VIAL As Ordered ONE (07:02)
[2024-05-29 07:05] LABS: HEMATOCRIT 41.7 % (36.0-47.0); HEMOGLOBIN 14.2 g/dl (12.0-15.5); MEAN CORPUSCULAR HEMOGLOBIN 33.7 pg (27.0-33.0); MEAN CORPUSCULAR HGB CONC 34.1 g/dl (32.0-36.5); PLATELET COUNT, AUTOMATED 253 10^3/uL (150-450); RED BLOOD COUNT 4.21 10^6/uL (4.00-5.40); WHITE BLOOD COUNT 6.5 10^3/uL (4.0-10.0)
[2024-05-29] MEDS: ceFAZolin SOD 2 GM in IV 1 EA IV ONE (07:40)
[2024-05-29] MEDS: METHYLENE BLUE 0.5% (5MG/ML) 10 ML AMP (PROVAYBLUE) As Ordered ONE (08:25)
[2024-05-29] MEDS: DOCUSATE SODIUM 100MG CAPSULE PO SCH (09:00)
[2024-05-29] MEDS ORDERED: HYDROmorphone HCL 2MG/ML 1ML VIAL As Ordered ONE (09:17)
[2024-05-29] MEDS ORDERED: oxyCODONE 5MG TAB PO PRN (09:20)
[2024-05-29] MEDS ORDERED: HYDROMORPHONE HCL 0.5 MG/ 0.5 ML SYRINGE IV PRN (09:20)
[2024-05-29] MEDS ORDERED: fentaNYL 100 MCG/2 ML INJECTION IV PRN (09:20)
[2024-05-29] MEDS ORDERED: ONDANSETRON 4MG 2ML VIAL IV PRN ×2 (09:20→09:40)
[2024-05-29] MEDS ORDERED: MORPHINE 4 MG/ML 1ML VIAL IV PRN (09:40)
[2024-05-29] MEDS ORDERED: PERCOCET PO (09:48)
[2024-05-29] MEDS ORDERED: IBUP80TA PO (09:48)
[2024-05-29] MEDS ORDERED: COLA100C5 PO (09:48)
[2024-05-29] MEDS ORDERED: GLYCOPYRROLATE INJ 0.2 MG/ML 2 ML VIAL As Ordered ONE (11:01)
[2024-05-29] MEDS: LR 1,000 ML IV SCH (11:59)
[2024-05-29] MEDS: PERCOCET 5MG/325MG TAB PO PRN (12:31)
[2024-05-29] MEDS ORDERED: KETOROLAC 30 MG/ML 1ML VIAL IV SCH (13:00)
[2024-05-29] MEDS: KETOROLAC 30 MG/ML 1ML VIAL IV SCH (15:20)
[2024-05-29] MEDS: SLF 3 ML SYR IV SCH (21:07)
[2024-05-30 02:00] VITALS: BP 98/55; TEMP 97.8; O2SAT 97
[2024-05-30] MEDS: SLF 3 ML SYR IV PRN (03:13)
[2024-05-30 05:52] VITALS: BP 96/58; TEMP 97.9; O2SAT 97
[2024-05-30] MEDS: PERCOCET 5MG/325MG TAB PO PRN (10:33)
[2024-05-30] MEDS: IBUPROFEN 800 MG TAB PO SCH (11:30)
== END 2024-05-30 14:05 | disposition home or self-care (01) ==
LOC: M SDC 06:13 → M OBS 10:50 → M SDC 05-30 14:05
PROVIDERS: ATTEND Obstetrics & Gynecology
DX: D25.9 Leiomyoma of uterus, unspecified (principal); N80.03 Adenomyosis of the uterus; N73.6 Female pelvic peritoneal adhesions (postinfective); N32.89 Other specified disorders of bladder; R10.2 Pelvic and perineal pain; Z98.51 Tubal ligation status; F43.10 Post-traumatic stress disorder, unspecified; Z91.018 Allergy to other foods; Z91.040 Latex allergy status; Z88.2 Allergy status to sulfonamides; Z79.899 Other long term (current) drug therapy
CPT/HCPCS: 36415; 58570; 81025; 85027; 86850; 86900; 86901; 88307; 96361; 96374; 96376; J0131; J0665; J0690; J1100; J1171; J1596; J1885; J2250; J2405; J3010; Q9968

== ENCOUNTER → 2024-06-13 | Outpatient (REF) | payer BC ==
[~2024-06-13] MED LIST changes: +IBUP80TA PO; -LR 1,000 ML IV SCH; +PERCOCET PO; +VENTAER INH
== END ==
LOC: M SFHCCLAY 15:33
PROVIDERS: ATTEND Family Medicine
DX: R05.1 Acute cough (principal); R50.9 Fever, unspecified

== ENCOUNTER → 2024-06-13 | Outpatient (CLI) | payer BC | LOC: M CLY 15:53 | PROVIDERS: ATTEND Family Medicine | DX: R05.1 Acute cough (principal); R50.9 Fever, unspecified ==

== ENCOUNTER → 2024-07-09 | Outpatient (CLI) | payer BC | LOC: M WHC 10:05 | PROVIDERS: ATTEND Obstetrics & Gynecology | DX: Z12.31 Encounter for screening mammogram for malignant neoplasm of breast (principal) ==

== ENCOUNTER → 2024-09-12 | Outpatient (REF) | payer BC ==
[2024-09-12 18:29] LABS: FREE T4 1.18 NG/DL (0.89-1.76)
[2024-09-12 18:30] LABS: THYROID STIMULATING HORMONE 0.788 uIU/ML (0.55-4.78); TOTAL IRON BINDING CAPACITY 284 UG/DL (250-425)
[2024-09-12 18:31] LABS: ALBUMIN 3.8 G/DL (3.2-5.2); ALKALINE PHOSPHATASE 55 U/L (35-104); ALT/SGPT 14 U/L (7.0-40); AST/SGOT 14 U/L (<34); BILIRUBIN,TOTAL 1.1 MG/DL (0.3-1.2); BLOOD UREA NITROGEN 15 MG/DL (9-23); CALCIUM LEVEL 8.8 MG/DL (8.5-10.1); CARBON DIOXIDE LEVEL 26 MMOL/L (20-31); CHLORIDE LEVEL 105 MMOL/L (98-107); CHOLESTEROL LEVEL 145 MG/DL (<200); CHOLESTEROL RISK RATIO 2.46 (<5); CREATININE FOR GFR 0.69 MG/DL (0.55-1.30); GLOMERULAR FILTRATION RATE > 60.0 (>58); GLUCOSE, FASTING 79 MG/DL (60-100); HDL CHOLESTEROL 58.8 MG/DL (>40); IRON (FE) 115 UG/DL (50-170); NON-HDL-C 86.2 MG/DL; PERCENT SATURATION 40.5 % (13.2-45.0); POTASSIUM SERUM 3.8 MMOL/L (3.5-5.1); SODIUM LEVEL 136 MMOL/L (136-145); TOTAL PROTEIN 6.8 G/DL (5.7-8.2); TRIGLYCERIDES LEVEL 146 MG/DL (<150)
[2024-09-12 18:34] LABS: TOTAL T3 123.8 NG/DL (60.0-181.0)
[2024-09-12 18:38] LABS: HEPATITIS B SURFACE ANTIGEN NEGATIVE (NEGATIVE)
[2024-09-12 18:59] LABS: HEPATITIS B CORE ANTIBODY IGM NEGATIVE (NEGATIVE)
[2024-09-12 19:00] LABS: HEPATITIS C VIRUS ABY INDEX 0.33 INDEX (<0.8)
== END ==
LOC: M SFHCCLAY 14:35
PROVIDERS: ATTEND Family Medicine
DX: K76.0 Fatty (change of) liver, not elsewhere classified (principal); E07.9 Disorder of thyroid, unspecified

== ENCOUNTER → 2025-06-05 | Outpatient (CLI) | payer BC ==
[~2025-06-05] MED LIST changes: -IBUP-1022 PO; +IBUP600T42 PO
== END ==
LOC: M CLY 08:49
PROVIDERS: ATTEND Physician Assistant
DX: R06.02 Shortness of breath (principal)

== ENCOUNTER → 2025-07-01 | Outpatient (CLI) | payer BC | LOC: M WHC 09:40 | PROVIDERS: ATTEND Obstetrics & Gynecology | DX: N64.4 Mastodynia (principal) | CPT/HCPCS: 76642; 77066; G0279 ==